=== PATIENT | female | born 1995 | race Caucasian/White ===

== ENCOUNTER 2020-02-14 13:28 | Emergency (ER) | payer MEDICAID ==
[~2020-02-14] VITALS: Ht 162.6 cm; Wt 75.3 kg
[2020-02-14 13:31] VITALS: BP 127/77
--- NOTE | 2020-02-14 13:36 | NUR ---
Patient ambulated to bed 7. RN evaluating patient at bedside.
--- NOTE | 2020-02-14 13:43 | NUR ---
24/F presents to ED with complaints of right hand pain since yesterday morning. Pt states she was stung by a bee yesterday morning around 0900. Pt has swelling, erythema and warmth to touch to right hand. Pt denies fever or chills. No open lesions noted.
--- NOTE | 2020-02-14 13:47 | NUR ---
Patient being evaluated by Dr. Rock at bedside.
[2020-02-14 14:23] VITALS: BP 127/77
--- NOTE | 2020-02-14 14:23 | NUR ---
Patient discharged with v/s stable. Written and verbal after care instructions given and explained. Patient alert, oriented and verbalized understanding of instructions. Ambulatory with steady gait. All questions addressed prior to discharge. ID band removed. Patient advised to follow up with PMD. Rx of BENADRYL, HYDROCORTISONE given. Patient educated on indication of medication including possible reaction and side effects. Opportunity to ask questions provided and answered.
== END 2020-02-14 14:23 | disposition home or self-care (01) ==
LOC: MED 13:28
DX: T63.461A Toxic effect of venom of wasps, accidental (unintentional), initial encounter (principal); W57.XXXA Bitten or stung by nonvenomous insect and other nonvenomous arthropods, initial encounter; Y93.89 Activity, other specified; Y92.89 Other specified places as the place of occurrence of the external cause; Y99.8 Other external cause status
CPT/HCPCS: 99283

== ENCOUNTER 2020-06-25 15:50 | Emergency (ER) | payer SELFPAY ==
[~2020-06-25] VITALS: Ht 160 cm; Wt 71.7 kg
[2020-06-25 16:13] VITALS: BP 136/81
--- NOTE | 2020-06-25 16:21 | NUR ---
RAYMOND. HANDED ON URINE CUP.
--- NOTE | 2020-06-25 16:26 | NUR ---
PT AMBULATED TO BED 02
--- NOTE | 2020-06-25 16:27 | NUR ---
25/F BIB SELF C/O VAGINAL BLEEDING , LOWER ABDOMINAL PAIN X 1 WEEK. CHECKED TESTED + YESTERDAY. LMP 05/20/20 PMH: DENIES
[2020-06-25 16:47] LABS: BASOPHILS % (AUTO) 0.4 % (0.0-2.0); EOSINOPHILS # (AUTO) 0.1 K/uL (0-0.4); HEMATOCRIT 39.9 % (36-48); HEMOGLOBIN 13.3 g/dL (12.0-16.0); LYMPHOCYTES # (AUTO) 2.2 K/uL (2.5-16.5); LYMPHOCYTES % (AUTO) 21.8 % (20.5-51.1); MEAN CORPUSCULAR HEMOGLOBIN 32 pg (27-31); MEAN CORPUSCULAR HGB CONC 33 g/dL (33-37); MONOCYTES # (AUTO) 0.8 K/uL (0.8-1.0); MONOCYTES % (AUTO) 7.7 % (1.7-9.3); NEUTROPHILS # (AUTO) 6.8 K/uL (1.8-7.7); NEUTROPHILS % (AUTO) 69.1 % (42.2-75.2); PLATELET COUNT (AUTO) 276 K/uL (140-450); RED BLOOD CELL COUNT(AUTO) 4.16 MIL/uL (4.20-5.40); RED CELL DISTRIBUTION WIDTH 13.9 % (11.6-13.7); WHITE BLOOD COUNT (AUTO) 9.9 K/uL (4.8-10.8)
[2020-06-25 17:59] LABS: APPEARANCE,URINE CLEAR (CLEAR); BILIRUBIN,URINE NEGATIVE (NEGATIVE); BLOOD, URINE 2+ (NEGATIVE); COLOR,URINE YELLOW (YELLOW); LEUKOCYTE ESTERASE ,URINE NEGATIVE (NEGATIVE); NITRITE, URINE NEGATIVE (NEGATIVE); UGLUCOSE NEGATIVE (NEGATIVE)
[2020-06-25 18:20] LABS: RBC,URINE 11-20 (MOD) /HPF (0-5); WBC,URINE 0-5 /HPF (0-5)
[2020-06-25 18:59] VITALS: BP 124/76
--- NOTE | 2020-06-25 18:59 | NUR ---
Patient discharged with v/s stable. Written and verbal after care instructions given and explained. Patient verbalized understanding. Ambulatory with steady gait. All questions addressed prior to discharge. Advised to follow up with PMD.
== END 2020-06-25 18:59 | disposition home or self-care (01) ==
LOC: MED 15:50
DX: O20.0 Threatened abortion (principal)
CPT/HCPCS: 36415; 76817; 81001; 81025; 84702; 85025; 86900; 86901; 99283; 99284

== ENCOUNTER 2023-09-09 16:58 | Emergency (ER) | payer OTHER ==
[~2023-09-09] VITALS: Ht 162.6 cm; Wt 74.8 kg
[2023-09-09 17:16] VITALS: BP 111/61; PULSE 67; RESP 18; TEMP 99.4; O2SAT 98
[2023-09-09 18:18] LABS: APPEARANCE,URINE CLEAR (CLEAR); BILIRUBIN,URINE NEGATIVE (NEGATIVE); BLOOD, URINE NEGATIVE (NEGATIVE); COLOR,URINE YELLOW (YELLOW); LEUKOCYTE ESTERASE ,URINE NEGATIVE (NEGATIVE); NITRITE, URINE NEGATIVE (NEGATIVE); PROTEIN,URINE NEGATIVE (NEGATIVE); UGLUCOSE NEGATIVE (NEGATIVE); UROBILINOGEN,URINE 0.2 EU/dL (0.2 - 1)
[2023-09-09 18:41] VITALS: BP 123/48; PULSE 76; RESP 18; TEMP 98.4; O2SAT 99
== END 2023-09-09 18:41 | disposition home or self-care (01) ==
LOC: MED 16:58
DX: O26.891 Other specified pregnancy related conditions, first trimester (principal); R10.30 Lower abdominal pain, unspecified; R10.33 Periumbilical pain; Z3A.10 10 weeks gestation of pregnancy
CPT/HCPCS: 76801; 81003; 81025; 99284; Q0092

== ENCOUNTER 2023-11-08 13:26 | Emergency (ER) | payer OTHER ==
[~2023-11-08] VITALS: Ht 162.6 cm; Wt 73.9 kg
[2023-11-08 13:43] VITALS: BP 116/60; PULSE 70; RESP 16; TEMP 98.2; O2SAT 98
[2023-11-08 14:35] LABS: BASOPHILS % (AUTO) 0.4 % (0.0-2.0); EOSINOPHILS # (AUTO) 0.1 K/uL (0-0.4); EOSINOPHILS % (AUTO) 1.2 % (0.0-4.0); HEMATOCRIT 35.5 % (36-48); HEMOGLOBIN 11.9 g/dL (12.0-16.0); LYMPHOCYTES # (AUTO) 2.2 K/uL (2.5-16.5); MEAN CORPUSCULAR HEMOGLOBIN 31 pg (27-31); MEAN CORPUSCULAR HGB CONC 34 g/dL (33-37); MEAN CORPUSCULAR VOLUME 91.6 fL (80-94); MONOCYTES # (AUTO) 0.7 K/uL (0.8-1.0); MONOCYTES % (AUTO) 7.8 % (1.7-9.3); NEUTROPHILS # (AUTO) 6.5 K/uL (1.8-7.7); NEUTROPHILS % (AUTO) 67.6 % (42.2-75.2); PLATELET COUNT (AUTO) 266 K/uL (140-450); RED BLOOD CELL COUNT(AUTO) 3.87 MIL/uL (4.20-5.40); WHITE BLOOD COUNT (AUTO) 9.6 K/uL (4.8-10.8)
[2023-11-08 14:47] LABS: ANION GAP 11.7 (8-16); CREATININE 0.5 mg/dL (0.6-1.3); POTASSIUM 3.7 mmol/L (3.5-5.1)
[2023-11-08] MEDS: ACETAMINOPHEN 325 MG TAB PO ONE (16:29)
[2023-11-08] MEDS: LIDOCAINE 5% 1 EA PATCH TP ONE (16:30)
== END 2023-11-08 16:48 | disposition home or self-care (01) ==
LOC: MED 13:26
DX: O9A.212 Injury, poisoning and certain other consequences of external causes complicating pregnancy, second trimester (principal); S39.012A Strain of muscle, fascia and tendon of lower back, initial encounter; R10.9 Unspecified abdominal pain; Z3A.19 19 weeks gestation of pregnancy; W01.0XXA Fall on same level from slipping, tripping and stumbling without subsequent striking against object, initial encounter; Y92.89 Other specified places as the place of occurrence of the external cause; Y93.89 Activity, other specified; Y99.8 Other external cause status
CPT/HCPCS: 36415; 76805; 80048; 85025; 99284

== ENCOUNTER 2023-12-14 17:55 | Emergency (ER) | payer OTHER ==
[~2023-12-14] VITALS: Ht 162.6 cm; Wt 77.7 kg
[2023-12-14 18:11] VITALS: BP 101/77; PULSE 68; RESP 18; TEMP 98.4; O2SAT 99
--- NOTE | 2023-12-14 18:26 | NUR ---
PT AMB TO BED 9
--- NOTE | 2023-12-14 18:35 | NUR ---
28YO FEMALE PT C/O SHARP RUQ ABD PAIN XTODAY. REPORTS SUDDEN ONSETS WHILE AT WORK. +NAUSEA. PT CURRENTLY 25WEEKS [id number]. NANI 04/05. LMP 06/30. DENIES INJURY, V/D, CHEST PAIN, SOB, VAGINAL BLEEDING OR TAKING MEDICATION. PT AAOX4, HOB POSITIONED PER COMFORT. CALL LIGHT WITHIN REACH. HX: DENIES NKA
--- NOTE | 2023-12-14 18:48 | NUR ---
lab at bedside
--- NOTE | 2023-12-14 18:57 | NUR ---
MD RICHARDSON AT BEDSIDE FOR EVALUATION
[2023-12-14 18:58] LABS: APPEARANCE,URINE CLEAR (CLEAR); BILIRUBIN,URINE NEGATIVE (NEGATIVE); BLOOD, URINE NEGATIVE (NEGATIVE); COLOR,URINE YELLOW (YELLOW); LEUKOCYTE ESTERASE ,URINE NEGATIVE (NEGATIVE); NITRITE, URINE NEGATIVE (NEGATIVE); PROTEIN,URINE NEGATIVE (NEGATIVE); UGLUCOSE NEGATIVE (NEGATIVE); UROBILINOGEN,URINE 0.2 EU/dL (0.2 - 1)
[2023-12-14 18:59] LABS: BASOPHILS % (AUTO) 0.2 % (0.0-2.0); EOSINOPHILS # (AUTO) 0.2 K/uL (0-0.4); EOSINOPHILS % (AUTO) 1.3 % (0.0-4.0); HEMATOCRIT 33.4 % (36-48); LYMPHOCYTES # (AUTO) 2.9 K/uL (2.5-16.5); LYMPHOCYTES % (AUTO) 21.3 % (20.5-51.1); MEAN CORPUSCULAR HEMOGLOBIN 31 pg (27-31); MEAN CORPUSCULAR HGB CONC 33 g/dL (33-37); MEAN CORPUSCULAR VOLUME 92.7 fL (80-94); MONOCYTES # (AUTO) 1.4 K/uL (0.8-1.0); MONOCYTES % (AUTO) 10.3 % (1.7-9.3); NEUTROPHILS # (AUTO) 9.1 K/uL (1.8-7.7); NEUTROPHILS % (AUTO) 66.9 % (42.2-75.2); PLATELET COUNT (AUTO) 228 K/uL (140-450); RED CELL DISTRIBUTION WIDTH 14.4 % (11.6-13.7); WHITE BLOOD COUNT (AUTO) 13.6 K/uL (4.8-10.8)
[2023-12-14 19:08] LABS: CALCIUM 9.1 mg/dL (8.5-10.1); CARBON DIOXIDE 22.8 mmol/L (21-32); CREATININE 0.6 mg/dL (0.6-1.3); POTASSIUM 3.8 mmol/L (3.5-5.1)
[2023-12-14 19:15] LABS: ALBUMIN 2.9 g/dL (3.4-5.0); BILIRUBIN,DIRECT 0.1 mg/dL (0.0-0.3); TOTAL BILIRUBIN 0.3 mg/dL (0.0-1.0); TOTAL PROTEIN, SERUM 6.8 g/dL (6.4-8.2)
--- NOTE | 2023-12-14 19:20 | NUR ---
REPORT GIVEN TO FRANCES WATERS. TRANSFER OF CARE AT THIS TIME
--- NOTE | 2023-12-14 19:23 | NUR ---
COMPLAINED OF RASHES ALL OVER THE BODY ,NOTED BY ERMD WITH ORDERS AND CARRRIED OUT
[2023-12-14 19:25] VITALS: O2SAT 99
--- NOTE | 2023-12-14 19:30 | NUR ---
MEDICATED PER ERMDS ORDER ,TOLERATED WELL.
[2023-12-14] MEDS: ACETAMINOPHEN 325 MG TAB PO ONE (19:41)
[2023-12-14] MEDS: LIDOCAINE 5% 1 EA PATCH TP ONE (19:43)
[2023-12-14] MEDS: LORATADINE 10 MG TAB PO ONE (20:08)
[2023-12-14] MEDS ORDERED: LIDO3CRE TP (20:47)
[2023-12-14] MEDS ORDERED: LORA10TA19 PO (20:48)
--- NOTE | 2023-12-14 21:00 | NUR ---
Patient discharged with v/s stable. Written and verbal after care instructions given FOR CHEST WALL PAIN,HEAT RASH Patient alert, oriented and verbalized understanding of instructions. Ambulatory with steady gait. All questions addressed prior to discharge. ID band removed. Patient advised to follow up with PMD. Rx of LIDOCAINE,CLARITIN given. Opportunity to ask questions provided and answered.
== END 2023-12-14 21:00 | disposition home or self-care (01) ==
LOC: MED 17:55
DX: O99.412 Diseases of the circulatory system complicating pregnancy, second trimester (principal); R07.89 Other chest pain; O99.712 Diseases of the skin and subcutaneous tissue complicating pregnancy, second trimester; L74.0 Miliaria rubra; Z3A.24 24 weeks gestation of pregnancy; Z79.899 Other long term (current) drug therapy
CPT/HCPCS: 36415; 76805; 80048; 80076; 81003; 81025; 83690; 85025; 99284; Q0092